=== PATIENT | female | born 1945 | race Caucasian/White ===

== ENCOUNTER → 2023-09-26 10:35 | Outpatient (CLI) | payer OTHER, SELFPAY ==
--- NOTE | 2023-09-26 10:39 | DI.RAD.S_ITS ---
PROCEDURE: FL BARIUM SWALLOW W SPEECH INDICATIONS: WHEEZING/CHRONIC COUGH/DECKER COMPARISON: None. TECHNIQUE: Examination was conducted in conjunction with speech pathology per standard protocol. In the lateral projection, filming was performed of the patient swallowing. AP projection filming may also be performed with patient swallowing. COMPARISON: FINDINGS: Function: The oral preparatory phase appears normal, with proper containment. The subsequent oral propulsive phase, pharyngeal phase, and esophageal phase of swallowing also appear normal with all proffered substances. No laryngotracheal penetration or aspiration. No pathologic vallecular pooling. Morphology: No cricopharyngeal bar is identified. No cervical esophageal webs. No Zenker's diverticulum. No strictures. IMPRESSION: Unremarkable exam. Dictated by: Michelle Mcdonough M.D. on 09/26/2023 at 17:05 Approved by: Michelle Mcdonough M.D. on 09/26/2023 at 17:05
--- NOTE | 2023-09-26 12:36 | ST.SWALLOW ---
Visit Care Team Role Provider Type Shabnam Keen MD Attending Provider Non-Staff Referring Provider Specialty: Internal Medicine Address: [address] [place] [address], [facility] Email: ST Modified Barium Swallow Study [employer] Modified Barium Swallow Study Start: 09/26/23 12:04 Freq: Status: Active Protocol: Document 09/26/23 12:05 [email or web address] (Rec: 09/26/23 12:35 [id number]) Modified Barium Swallow Study Total Time Visit Start Time 11:00 Visit Stop Time 11:30 Total Visit Minutes 30 Referral Referring Physician Shabnam Keen Reason for Referral dysphagia Setting Setting Outpatient Care Patient Information Identification Type Name,Date of Patient History Pt was seen for a Modified Barium Swallow Study at the referral of Shabnam Keen. According to the pt, she has experienced pain in her throat and mid-chest area when eating. She noted that this occurs most often if she is eating too fast and with foods such as hamburger patties with rice. Pt stated she has a lifelong history of eating too fast, which results in ther described pain. She denies choking; but stated she has a frequent cough related to COVID 4 years ago. Finally, pt reported a PMH that includes hiatal hernia ( surgically repaired) and GERD. Subjective Observations Pt was seated in the fluoroscopy chair with directions and procedures described for her. She indicated she understood and agreed to proceed. Patient Positioning Position View Lat-A/P Imaging Lateral View Textures Administered Trials Presented Thin Liquid via Spoon (IDDSI 0 ),Thin Liquid via Cup (IDDSI 0 ),Extremely Thick Liquid via Spoon (IDDSI 4),Regular (IDDSI 7) Barium Tablet Yes The IDDSI Framework Protocol: IDDSI.1 Oral Impairment Source: The Modified Barium Swallow Impairment Profile (MBSImP??) Lip Closure No labial escape Tongue Control During Bolus Hold Cohesive bolus between tongue to palatal seal Bolus Preparation/Mastication Disorganized chewing/mashing with solid pieces of bolus unchewed Initiation of Pharyngeal Swallow Bolus head in valleculae Additional Oral Impairment Observations -OME and DKS were observed to be WNL. Dentition was noted to have several missing teeth upper and lower arches . Lower arch consisted of 1 molar and anterior teeth present -Mastication observed to be anterior munching pattern with disorganization secondary to missing teeth. Adequate bolus formation with solid, unchewed pieces. Adequate bolus control and AP transition. Pharyngeal Impairment Source: The Modified Barium Swallow Impairment Profile (MBSImP??) Soft Palate Elevation No bolus between soft palate & pharyngeal wall Laryngeal Elevation Comp.sup.move.thyroid cart.w/ comp.approx.arytenoids to epiglot petiole Anterior Hyoid Excursion Complete anterior movement Epiglottic Movement Complete inversion Laryngeal Vestibular Closure Complete; no air/contrast in laryngeal vestibule Pharyngeal Stripping Wave Present - complete Pharyngoesophageal Segment Opening Complete distention & complete duration; no obstruction of flow Tongue Base Retraction Trace column of contrast/air betwn tongue base & post. pharyngeal wall Pharyngeal Residue Complete pharyngeal clearance Location Valleculae Additional Pharyngeal Impairment Pharyngeal phase observed to Observations be WNL A/P View Textures Administered Trials Presented Thin Liquid via Cup (IDDSI 0) The IDDSI Framework Protocol: IDDSI.1 A/P View Observations Pharyngeal Contraction Complete Esophageal Clearance Upright Position Complete clearance; esophageal coating Vocal Fold Function Good Esophageal Function WFL Clinical Impressions Dysphagia Type WNL Patient Appropriate for Therapy No Recommendations Diet Comments No diet change is recommended
== END ==
PROVIDERS: Referring Provider Internal Medicine; Visit Provider Internal Medicine
DX: R06.2 Wheezing (principal); R05.3 Chronic cough; R06.09 Other forms of dyspnea
CPT/HCPCS: 74230; 92611